=== PATIENT | female | born 2000 | race Caucasian/White ===

== ENCOUNTER → 2020-02-05 | Outpatient (CLI) | payer BC ==
[2020-02-05 10:58] LABS: ALBUMIN 4.4 g/dL (3.7-5.6); ALKALINE PHOSPHATASE 53 U/L (50-135); ASPARTATE AMINO TRANSFERASE 25 U/L (5-30); BILIRUBIN,TOTAL 0.2 mg/dL (0.2-1.3); CHOLESTEROL 176.75 mg/dL (0-200); TRIGLYCERIDES 189 mg/dL (<150)
[2020-02-05 11:10] LABS: DIRECT LDL 111 mg/dL (<100)
[2020-02-05 11:14] LABS: VLDL CHOLESTEROL 37.8 mg/dL (10-31)
== END ==
LOC: OD 09:45
DX: L70.0 Acne vulgaris (principal)
CPT/HCPCS: 36415; 80061; 80076

== ENCOUNTER 2020-03-19 19:55 | Emergency (ER) | payer BC ==
--- NOTE | 2020-03-19 21:25 | ER Document Report ---
ED Medical Screen (RME) - General Chief Complaint: Abdominal Pain Stated Complaint: ABDOMINAL PAIN/POPPING SENSATION Time Seen by Provider: 03/19/20 21:16 Mode of Arrival: Ambulatory Information source: Patient Notes: Patient presents complaining of a popping sensation to the lower chest area. Patient states that she had a popping in the chest to the right side for the past 2 months and then 2 days ago developed popping in the left side of the lower costal margin. Patient states today she had some lower chest pain and had a warm feeling in this area. Patient states that she became anxious and had some difficulty breathing although does not know if this may be attributed to the anxiety. I have greeted and performed a rapid initial assessment of this patient. A comprehensive ED assessment and evaluation of the patient, analysis of test results and completion of the medical decision making process will be conducted by additional ED providers. - Related Data Allergies/Adverse Reactions: Penicillins Allergy (Verified 03/19/20 21:13) Past Medical History - Social History Chew tobacco use (# tins/day): No Frequency of alcohol use: None Drug Abuse: None Physical Exam - Vital signs Vitals: Temp Pulse Resp BP Pulse Ox 98.8 F 117 H 18 128/91 H 97 03/19/20 20:35 03/19/20 20:35 03/19/20 20:35 03/19/20 20:35 03/19/20 20:35 - Respiratory Respiratory status: No respiratory distress Chest status: Tender - Lower costal margin with a palpable popping sensation Course - Vital Signs Vital signs: Temp Pulse Resp BP Pulse Ox 98.8 F 117 H 18 128/91 H 97 03/19/20 20:35 03/19/20 20:35 03/19/20 20:35 03/19/20 20:35 03/19/20 20:35
--- NOTE | 2020-03-19 22:12 | RADIOLOGY REPORT (SQ) ---
EXAM DESCRIPTION: XR CHEST 2 VIEWS COMPLETED DATE/TME: 03/19/2020 21:21 CLINICAL HISTORY: 19 years, Female, popping to lower chest area COMPARISON: None. NUMBER OF VIEWS: 2 TECHNIQUE: Frontal and lateral views of the chest LIMITATIONS: None. FINDINGS: Heart size is normal. The lungs are clear. No pneumothorax IMPRESSION: Negative chest copyright 2011 [employer]- All Rights Reserved
[2020-03-19 22:49] LABS: ABSOLUTE MONOCYTES (AUTO) 0.4 10^3/uL (0.1-1.4); BASOPHILS % (AUTO) 0.5 % (0-2); TOTAL CELLS COUNTED % (AUTO) 100 %
[2020-03-19 23:03] LABS: ABSOLUTE EOSINOPHILS # (AUTO) 0.1 10^3/uL (0.0-0.6); ABSOLUTE LYMPHOCYTES (AUTO) 2.1 10^3/uL (0.5-4.7); ABSOLUTE NEUT (AUTO) 3.9 10^3/uL (1.7-8.2); EOSINOPHILS % (AUTO) 2.2 % (0-6); HEMATOCRIT 44.8 % (36.0-47.0); HEMOGLOBIN 15.5 g/dL (12.0-15.5); LYMPHOCYTES % (AUTO) 31.9 % (13-45); MEAN CORPUSCULAR HGB CONC 34.6 g/dL (32.0-36.0); MEAN CORPUSCULAR VOLUME 87 fl (80-97); MONOCYTES % (AUTO) 6.3 % (3-13); PLATELET COUNT 330 10^3/uL (150-450); RED BLOOD COUNT 5.16 10^6/uL (3.72-5.28); RED CELL DISTRIBUTION WIDTH 13.2 % (11.5-14.0); SEGMENTED NEUTROPHILS % (AUTO) 59.1 % (42-78); WHITE BLOOD COUNT 6.6 10^3/uL (4.0-10.5)
[2020-03-19 23:09] LABS: ALBUMIN 5.2 g/dL (3.7-5.6); ALKALINE PHOSPHATASE 71 U/L (50-135); ANION GAP 10 (5-19); ASPARTATE AMINO TRANSFERASE 28 U/L (5-30); BILIRUBIN,TOTAL 0.4 mg/dL (0.2-1.3); BLOOD UREA NITROGEN 12 mg/dL (7-20); CALCIUM 10.7 mg/dL (8.4-10.2); CARBON DIOXIDE 27 mmol/L (22-30); CHLORIDE 102 mmol/L (98-107); GLUCOSE 88 mg/dL (75-110); POTASSIUM 4.4 mmol/L (3.6-5.0); TOTAL PROTEIN 8.9 g/dL (6.3-8.2)
[2020-03-20 06:59] LABS: APPEARANCE,URINE SLIGHTLY-CLOUDY; BILIRUBIN,URINE NEGATIVE (NEGATIVE); COLOR,URINE YELLOW; GLUCOSE, URINE NEGATIVE (NEGATIVE); KETONES,URINE NEGATIVE (NEGATIVE); LEUKOCYTE ESTERASE,URINE NEGATIVE (NEGATIVE); NITRITE,URINE NEGATIVE (NEGATIVE); PROTEIN,URINE NEGATIVE (NEGATIVE); URINE SPECIFIC GRAVITY 1.016; UROBILINOGEN,URINE NEGATIVE mg/dL (<2.0)
--- NOTE | 2020-03-20 07:15 | ER Document Report ---
ED GI/ - General Chief Complaint: Abdominal Pain Stated Complaint: ABDOMINAL PAIN/POPPING SENSATION Time Seen by Provider: 03/19/20 21:16 Primary Care Provider: LATANYA ROSADO PA [Primary Care Provider] - Follow up as needed Mode of Arrival: Ambulatory Information source: Patient Notes: 19-year-old female presented to ED for popping sensation to the lower chest uppe r abdomen area. She states is been there for about 2 months and felt like she was having increase in pain for the last 2 to 3 days. She states she has a ultrasound scheduled for Friday by her primary care doctor. She states she came in tonight for shortness of breath with the abdominal pain. She did have chest x-ray and labs ordered in the triage area. Labs were all negative chest x-ray was negative she had not had a urine before I examined her urine was completed and was also negative. - HPI Patient complains to provider of: Abdominal pain Onset: Other - 2 months Timing/Duration: Intermittent Quality of pain: Other - Uncomfortable Severity at maximum: Mild Severity in ED: Mild Pain Level: 1 Location: Epigastric Associated symptoms: Shortness of breath, Other - Epigastric pain with popping feeling Exacerbated by: Movement Relieved by: Denies Similar symptoms previously: Yes Recently seen / treated by doctor: Yes - Related Data Allergies/Adverse Reactions: Penicillins Allergy (Verified 03/19/20 21:13) Past Medical History - General Information source: Patient Last Menstrual Period: 03/15/2020 - Social History Smoking Status: Never Smoker Chew tobacco use (# tins/day): No Frequency of alcohol use: None Drug Abuse: None Lives with: Alone Family History: Reviewed & Not Pertinent Patient has homicidal ideation: No - Past Medical History Cardiac Medical History: Reports: None Pulmonary Medical History: Reports: None EENT Medical History: Reports: None Neurological Medical History: Reports: None Endocrine Medical History: Reports: None Renal/ Medical History: Reports: None Malignancy Medical History: Reports: None GI Medical History: Reports: None Musculoskeletal Medical History: Reports None Skin Medical History: Reports None Psychiatric Medical History: Reports: None Traumatic Medical History: Reports: None Infectious Medical History: Reports: None Surgical Hx: Negative Past Surgical History: Reports: None - Immunizations Immunizations up to date: Yes Hx Diphtheria, Pertussis, Tetanus Vaccination: Yes Review of Systems - Review of Systems Constitutional: No symptoms reported EENT: No symptoms reported Cardiovascular: No symptoms reported Respiratory: Short of breath - Before coming and denied any shortness of breath when I talked to her Gastrointestinal: Abdominal pain - Mild discomfort Genitourinary: No symptoms reported Female Genitourinary: No symptoms reported Musculoskeletal: No symptoms reported Skin: No symptoms reported Hematologic/Lymphatic: No symptoms reported Neurological/Psychological: No symptoms reported -: Yes All other systems reviewed and negative Physical Exam - Vital signs Vitals: Temp Pulse Resp BP Pulse Ox 98.8 F 117 H 18 128/91 H 97 03/19/20 20:35 03/19/20 20:35 03/19/20 20:35 03/19/20 20:35 03/19/20 20:35 Interpretation: Normal - General General appearance: Appears well, Alert - HEENT Head: Normocephalic, Atraumatic Eyes: Normal Pupils: PERRL - Respiratory Respiratory status: No respiratory distress Chest status: Nontender Breath sounds: Normal Chest palpation: Normal - Cardiovascular Rhythm: Regular Heart sounds: Normal auscultation Murmur: No - Abdominal Inspection: Normal Distension: No distension Bowel sounds: Normal Tenderness: Tender - Epigastric area Organomegaly: No organomegaly, Other - Small bulging area to the mid epigastric area. She states is been there for about 2 months has a ultrasound ordered outpatient for Friday. - Back Back: Normal, Nontender - Extremities General upper extremity: Normal inspection, Nontender, Normal color, Normal ROM, Normal temperature General lower extremity: Normal inspection, Nontender, Normal color, Normal ROM, Normal temperature, Normal weight bearing. No: Gregorio's sign - Neurological Neuro grossly intact: Yes Cognition: Normal Orientation: AAOx4 Dyer Coma Scale Eye Opening: Spontaneous Marcy Coma Scale Verbal: Oriented Marcy Coma Scale Motor: Obeys Commands Dyer Coma Scale Total: 15 Speech: Normal Motor strength normal: LUE, RUE, LLE, RLE Sensory: Normal - Psychological Associated symptoms: Normal affect, Normal mood - Skin Skin Temperature: Warm Skin Moisture: Dry Skin Color: Normal Course - Re-evaluation Re-evalutation: 03/20/20 08:26 Patient stated she did not want to ED ultrasound ordered unless it is extremely important as she has an outpatient one ordered on Friday. She states the nurse is going to change what we can do tonight she would rather wait and do that when she has scheduled on Friday. I explained to her know that it would not change her disposition. If there was a hernia that she would need a consult with surgery and if there was no change in her pain she could wait until Friday. She states she was short of breath last night and she did note that was because of anxiety or because of the "popping" sensation. Chest x-ray was negative all labs were negative. Patient was discharged home to follow-up with primary and to get ultrasound as scheduled. - Vital Signs Vital signs: Temp Pulse Resp BP Pulse Ox 97.6 F 75 14 106/70 98 03/20/20 07:24 03/20/20 07:24 03/20/20 07:24 03/20/20 07:24 03/20/20 07:24 - Laboratory Result Diagrams: 03/19/20 22:03 03/19/20 22:03 Laboratory results interpreted by me: 03/19/20 22:03 Calcium 10.7 H Total Protein 8.9 H - Diagnostic Test Radiology reviewed: Image reviewed, Reports reviewed Discharge - Discharge Clinical Impression: Upper abdominal pain Condition: Stable Disposition: HOME, SELF-CARE Additional Instructions: ABDOMINAL PAIN: There are many causes of abdominal pain. Pain can mean a serious problem requiring surgery (such as appendicitis). It can also be an innocent problem that goes away on its own (such as a viral infection). Often, time must pass to determine the cause of pain. The physician does not feel that hospitalization is necessary, at present. Things may change within the next 24 hours. Call the doctor or come back for re- examination if any problems occur, such as: (1) Pain that becomes more severe, steady, or becomes concentrated in one specific area. Also, pain that is more severe with movement or coughing. (2) Vomiting that persists or becomes more frequent. (3) Blood in the vomitus, urine, or bowel movements. Blood in the stool may have a tarry or black appearance. (4) Shaking chills or fever greater than 100 degrees F. (5) The abdomen becomes more distended or swollen. (6) Bowel movements cease. (7) Failure to improve as expected. Please keep your appointment with ultrasound. Your labs and urine and chest x- ray were all negative. Please follow-up with your primary care doctor who will we discussed your ultrasound results after your ultrasound. You state he has no new pain this is been there for about a month. FOLLOW-UP CARE: If you have been referred to a physician for follow-up care, call the physicians office for an appointment as you were instructed or within the next two days. If you experience worsening or a significant change in your symptoms, notify the physician immediately or return to the Emergency Department at any time for re-evaluation. Forms: Return to Work Referrals: LATANYA ROSADO PA [Primary Care Provider] - Follow up as needed
[2020-03-20 07:25] VITALS: BP 106/70
== END 2020-03-20 07:25 | disposition home or self-care (01) ==
LOC: ER 19:55
DX: R10.13 Epigastric pain (principal); R10.816 Epigastric abdominal tenderness; R06.02 Shortness of breath; R09.89 Other specified symptoms and signs involving the circulatory and respiratory systems; R19.8 Other specified symptoms and signs involving the digestive system and abdomen; Z88.0 Allergy status to penicillin
CPT/HCPCS: 36415; 71046; 80053; 81001; 81025; 83690; 85025; 99284